=== PATIENT | female | born 1980 | race Two or more races ===

== ENCOUNTER 2024-06-20 14:55 | Inpatient (IN) | payer MEDICAID, OTHER ==
[~2024-06-20] VITALS: Ht 154.9 cm; Wt 55.5 kg
[2024-06-20 16:27] LABS: Urine Bacteria FEW /hpf (None Seen); Urine Blood 2+ /uL (Negative); Urine Clarity Clear (Clear); Urine Color Colorless (Yellow); Urine Protein, UAD 3+ (Negative); Urine Specific Gravity 1.011 (1.001-1.035); Urine Urobilinogen Normal (Negative); Urine WBC 59 /hpf (0 - 5)
[2024-06-20 16:55] LABS: Basophils # (auto) 0 10 ^3/uL (0-0.2); Basophils % (auto) 0.8 % (0.0-2.0); Eosinophils # (auto) 0.1 10 ^3/uL (0-0.8); Eosinophils % (auto) 1.2 % (0.0-7.0); Hematocrit 32.7 % (36.0-46.0); Hemoglobin 10.7 g/dL (12.2-16.2); Lymphocytes # (auto) 1.7 10 ^3/uL (0.4-5.4); Lymphocytes % (auto) 32.6 % (10.0-50.0); Mean Corpuscular Hemoglobin 28.4 pg (28.0-32.0); Mean Corpuscular Hgb Conc. 32.7 g/dL (32.0-36.0); Mean Corpuscular Volume 86.9 fL (80.0-100.0); Monocytes # (auto) 0.6 10 ^3/uL (0-1.3); Monocytes % (auto) 11.8 % (0.0-12.0); Neutrophils # (auto) 2.8 10 ^3/uL (1.6-8.6); Neutrophils % (auto) 53.6 % (37.0-80.0); Platelet Count (auto) 230 10^3/uL (140-450); Red Blood Cells 3.76 10^6/uL (4.0-5.20); White Blood Cell 5.3 10^3/uL (4.4-10.8)
[2024-06-20 17:13] LABS: Alanine Aminotransferase 12 U/L (7-40); Albumin 3.2 g/dL (3.2-4.8); Alkaline Phosphatase 45 U/L (46-116); Anion Gap 9 (5-15); Aspartate Aminotransferase 17 U/L (13-40); Bilirubin, Total 0.5 mg/dL (0.2-1.0); Blood Urea Nitrogen 45 mg/dL (9-23); Calcium 8.9 mg/dL (8.7-10.4); Carbon Dioxide 16 mmol/L (20-30); Chloride 114 mmol/L (98-107); Glucose 80 mg/dL (74-106); Potassium 4.7 mmol/L (3.5-5.1); Sodium 139 mmol/L (136-145)
[2024-06-20 17:14] LABS: Total Protein 5.8 g/dL (5.7-8.2)
[2024-06-20 18:38] VITALS: PULSE 85; RESP 20; O2SAT 98
[2024-06-20] MEDS: cefTRIAXone 1GM/50ML D5W 50 ML IV ONE (18:46)
[2024-06-20] MEDS: amLODIPine BESYLATE 5 MG TAB PO ONE ×2 (18:48→19:02)
[2024-06-20] MEDS: predniSONE 5 MG TAB PO ONE (19:00)
[2024-06-20] MEDS ORDERED: ONDANSETRON HCL 4 MG/2 ML VIAL IV PRN (19:00)
[2024-06-20] MEDS ORDERED: NITROGLYCERIN 0.4 MG SL TAB SL PRN (19:00)
[2024-06-20] MEDS: FUROSEMIDE 20 MG/2 ML VIAL IV ONE (19:00)
[2024-06-20] MEDS ORDERED: DOCUSATE SOD 100 MG CAP PO PRN (19:00)
[2024-06-20] MEDS ORDERED: ENOXAPARIN SOD 30 MG/0.3 ML SYRINGE SC SCH (19:00)
[2024-06-20] MEDS: LABETALOL HCL 20 MG/4 ML VL IV ONE (19:00)
[2024-06-20] MEDS ORDERED: MORPHINE SULFATE INJ 2 MG/ml SYRG IV PRN (19:00)
[2024-06-20] MEDS: FUROSEMIDE 40 MG/4 ML VIAL IV ONE (19:00)
[2024-06-20] MEDS ORDERED: LABETALOL HCL 20 MG/4 ML VL IV PRN (19:00)
[2024-06-20] MEDS: ENOXAPARIN SOD 30 MG/0.3 ML SYRINGE SC SCH (19:11)
[2024-06-20 19:42] VITALS: BP 175/102; PULSE 88; RESP 16; TEMP 98.4; O2SAT 98
[2024-06-21] MEDS ORDERED: cefTRIAXone 1GM/50ML D5W 50 ML IV SCH (09:00)
[2024-06-21] MEDS ORDERED: predniSONE 5 MG TAB PO SCH (10:00)
== END 2024-06-20 23:41 | disposition left against medical advice (07) | DRG 346 ==
LOC: ER 14:55 → UNDOADMIN 19:04 → OVERFLOW 19:04 → TELE 19:13 → OVERFLOW 19:13 → UNDODISIN 23:41
PROVIDERS: ADMIT Nurse Practitioner Family; ATTEND Nurse Practitioner Family
DX: M32.9 Systemic lupus erythematosus, unspecified (principal); N17.9 Acute kidney failure, unspecified; N12 Tubulo-interstitial nephritis, not specified as acute or chronic; I16.1 Hypertensive emergency; N30.01 Acute cystitis with hematuria; D64.9 Anemia, unspecified; Z53.29 Procedure and treatment not carried out because of patient's decision for other reasons; K80.20 Calculus of gallbladder without cholecystitis without obstruction; N85.4 Malposition of uterus; I10 Essential (primary) hypertension; Z79.899 Other long term (current) drug therapy
CPT/HCPCS: 36415; 71045; 74176; 76775; 80053; 81001; 81025; 83880; 84484; 85025; 85379; 87086; 93970; G0378

== ENCOUNTER 2024-06-21 14:23 | Inpatient (IN) | payer OTHER, MEDICAID ==
[~2024-06-21] VITALS: Ht 154.9 cm; Wt 56.4 kg
[2024-06-21] MEDS ORDERED: NITROGLYCERIN 0.4 MG SL TAB SL PRN (19:00)
[2024-06-21] MEDS ORDERED: DOCUSATE SOD 100 MG CAP PO PRN (19:00)
[2024-06-21] MEDS ORDERED: MORPHINE SULFATE INJ 2 MG/ml SYRG IV PRN (19:00)
[2024-06-21] MEDS ORDERED: ENOXAPARIN SOD 30 MG/0.3 ML SYRINGE SC SCH (19:00)
[2024-06-21] MEDS ORDERED: ONDANSETRON HCL 4 MG/2 ML VIAL IV PRN (19:00)
[2024-06-21] MEDS: ENOXAPARIN SOD 60 MG/0.6 ML SYRINGE SC ONE (20:54)
[2024-06-21] MEDS: cefTRIAXone 1GM/50ML D5W 50 ML IV ONE (20:54)
[2024-06-21 20:58] VITALS: PULSE 87; RESP 18; O2SAT 96
[2024-06-21 23:17] VITALS: PULSE 84; RESP 16; O2SAT 97
[2024-06-22] MEDS: LABETALOL HCL 20 MG/4 ML VL IV PRN (00:43)
[2024-06-22 04:59] LABS: Basophils # (auto) 0 10 ^3/uL (0-0.2); Basophils % (auto) 0.9 % (0.0-2.0); Eosinophils # (auto) 0 10 ^3/uL (0-0.8); Eosinophils % (auto) 0.9 % (0.0-7.0); Hematocrit 32.7 % (36.0-46.0); Hemoglobin 10.8 g/dL (12.2-16.2); Lymphocytes # (auto) 1.6 10 ^3/uL (0.4-5.4); Lymphocytes % (auto) 40.4 % (10.0-50.0); Mean Corpuscular Hemoglobin 28.6 pg (28.0-32.0); Mean Corpuscular Volume 86.7 fL (80.0-100.0); Monocytes # (auto) 0.4 10 ^3/uL (0-1.3); Monocytes % (auto) 11.2 % (0.0-12.0); Neutrophils # (auto) 1.9 10 ^3/uL (1.6-8.6); Neutrophils % (auto) 46.6 % (37.0-80.0); Nucleated Red Blood Cells % 0.1 %; Platelet Count (auto) 231 10^3/uL (140-450); Red Blood Cells 3.77 10^6/uL (4.0-5.20); Red Cell Distribution Width 13.8 % (11.8-14.3)
[2024-06-22 05:17] LABS: Alanine Aminotransferase 11 U/L (7-40); Albumin 3.3 g/dL (3.2-4.8); Alkaline Phosphatase 44 U/L (46-116); Anion Gap 7 (5-15); Aspartate Aminotransferase 16 U/L (13-40); BUN/Creatinine Ratio 17.3 (10.0-20.0); Blood Urea Nitrogen 45 mg/dL (9-23); Calcium 8.9 mg/dL (8.7-10.4); Carbon Dioxide 19 mmol/L (20-30); Chloride 115 mmol/L (98-107); Glucose 86 mg/dL (74-106); Potassium 4.9 mmol/L (3.5-5.1); Sodium 141 mmol/L (136-145)
[2024-06-22 05:18] LABS: Bilirubin, Total 0.4 mg/dL (0.2-1.0); Total Protein 5.9 g/dL (5.7-8.2)
[2024-06-22] MEDS: cefTRIAXone 1GM/50ML D5W 50 ML IV SCH (09:26)
[2024-06-22] MEDS: predniSONE 5 MG TAB PO SCH (10:32)
[2024-06-22 11:41] LABS: Free T3 3.09 pg/mL (2.3-4.2); Free T4 (Free Thyroxine) 0.95 ng/dL (0.89-1.76)
[2024-06-22 18:40] LABS: Sodium Urine 71 mmol/L (40-220)
[2024-06-22 18:47] LABS: Amphetamine Screen, Urine Neg (NEGATIVE); Benzodiazephine Screen, Urine Neg (NEGATIVE)
[2024-06-22 18:48] LABS: Barbiturate Scree,Urine Neg (NEGATIVE); Cannabinoid Screen, Urine Neg (NEGATIVE); Cocaine Screen, Urine Neg (NEGATIVE); Creatinine, Urine 75.77 mg/dL (30.0-125.0); Opiate Scree,Urine Neg (NEGATIVE); Phencyclidine Screen, Urine Neg (NEGATIVE)
[2024-06-22 18:51] LABS: Protein, Urine 305.6 mg/dL (0.0-11.9); Urine Bacteria FEW /hpf (None Seen); Urine Blood 1+ /uL (Negative); Urine Budding Yeast OCCASIONAL /hpf (None Seen); Urine Clarity Clear (Clear); Urine Color Colorless (Yellow); Urine Protein, UAD 3+ (Negative); Urine Specific Gravity 1.011 (1.001-1.035); Urine Urobilinogen Normal (Negative); Urine WBC 52 /hpf (0 - 5)
[2024-06-22] MEDS: hydrALAZINE HCL 25 MG TAB PO SCH (22:33)
[2024-06-23] VITALS (8 sets, daily range): BP systolic 128–166; BP diastolic 85–92; PULSE 77–90; RESP 12–18; TEMP 97.9–98.6; O2SAT 92–99
[2024-06-23] MEDS ORDERED: AMLO1TAB22 PO (00:20)
[2024-06-23] MEDS ORDERED: PRE5T PO (00:20)
[2024-06-23] MEDS ORDERED: HYDR-4491 PO (00:20)
[2024-06-23 10:27] LABS: Basophils # (auto) 0 10 ^3/uL (0-0.2); Basophils % (auto) 0.9 % (0.0-2.0); Eosinophils # (auto) 0 10 ^3/uL (0-0.8); Eosinophils % (auto) 1.3 % (0.0-7.0); Hematocrit 30.1 % (36.0-46.0); Lymphocytes # (auto) 1.2 10 ^3/uL (0.4-5.4); Lymphocytes % (auto) 33.3 % (10.0-50.0); Mean Corpuscular Hemoglobin 28.9 pg (28.0-32.0); Mean Corpuscular Hgb Conc. 33.1 g/dL (32.0-36.0); Mean Corpuscular Volume 87.5 fL (80.0-100.0); Monocytes # (auto) 0.5 10 ^3/uL (0-1.3); Monocytes % (auto) 14.1 % (0.0-12.0); Neutrophils # (auto) 1.8 10 ^3/uL (1.6-8.6); Neutrophils % (auto) 50.4 % (37.0-80.0); Nucleated Red Blood Cells % 0.1 %; Platelet Count (auto) 202 10^3/uL (140-450); Red Blood Cells 3.44 10^6/uL (4.0-5.20); Red Cell Distribution Width 13.6 % (11.8-14.3); White Blood Cell 3.6 10^3/uL (4.4-10.8)
[2024-06-23 10:35] LABS: Chloride 114 mmol/L (98-107); Potassium 4.6 mmol/L (3.5-5.1); Sodium 140 mmol/L (136-145)
[2024-06-23 10:36] LABS: Anion Gap 6 (5-15); Calcium 9.2 mg/dL (8.7-10.4); Carbon Dioxide 20 mmol/L (20-30)
[2024-06-23 10:41] LABS: BUN/Creatinine Ratio 18.8 (10.0-20.0); Blood Urea Nitrogen 41 mg/dL (9-23); Glucose 87 mg/dL (74-106)
[2024-06-23] MEDS ORDERED: FURO1TAB33 PO (12:44)
[2024-06-23] MEDS ORDERED: NITR-87 PO (12:45)
[2024-06-23] MEDS ORDERED: LOSA-534 PO (12:45)
== END 2024-06-23 17:00 | disposition home or self-care (01) | DRG 683 ==
LOC: ER 14:23 → TELE 18:52 → TELE-EAST 06-22 23:54
PROVIDERS: ADMIT Nurse Practitioner Family; ATTEND Internal Medicine
DX: N17.9 Acute kidney failure, unspecified (principal); E87.20 Acidosis, unspecified; I16.1 Hypertensive emergency; N30.00 Acute cystitis without hematuria; K80.20 Calculus of gallbladder without cholecystitis without obstruction; N85.4 Malposition of uterus; M32.9 Systemic lupus erythematosus, unspecified; N18.9 Chronic kidney disease, unspecified; I12.9 Hypertensive chronic kidney disease with stage 1 through stage 4 chronic kidney disease, or unspecified chronic kidney disease; D63.1 Anemia in chronic kidney disease; T46.1X5A Adverse effect of calcium-channel blockers, initial encounter; Y92.89 Other specified places as the place of occurrence of the external cause; Z84.1 Family history of disorders of kidney and ureter; Z79.899 Other long term (current) drug therapy
CPT/HCPCS: 36415; 71045; 76775; 78582; 80048; 80053; 80307; 81001; 81025; 82306; 82570; 83735; 83880; 83970; 84100; 84156; 84300; 84439; 84443; 84481; 84484; 85025; 93005; 93306; 99291; G0378